=== PATIENT | female | born 2000 | race Caucasian/White ===

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

== ENCOUNTER 2023-05-16 17:38 | Emergency (ER) | payer OTHER, MEDICAID ==
[2023-05-16 17:54] VITALS: BP 136/82
[2023-05-16 18:25] LABS: BASOPHILS # (AUTO) 0.1 10^3/uL (0.0-0.1); EOSINOPHILS # (AUTO) 0.1 10^3/uL (0.0-0.7); EOSINOPHILS % (AUTO) 0.8 %; HCT - HEMATOCRIT 41.2 % (37.0-47.0); HGB - HEMOGLOBIN 13.6 g/dL (12.0-16.0); LYMPHOCYTES # (AUTO) 3.5 10^3/uL (1.5-3.5); LYMPHOCYTES % (AUTO) 38.6 %; MEAN CORPUSCULAR HEMOGLOBIN 27.8 pg (27.0-31.0); MEAN CORPUSCULAR VOLUME 84.3 fL (81.0-99.0); MEAN PLATELET VOLUME 10.8 fL (7.9-10.8); MONOCYTES # (AUTO) 0.6 10^3/uL (0.0-1.0); MONOCYTES % (AUTO) 6.1 %; NEUTROPHILS # (AUTO) 4.9 10^3/uL (1.5-6.6); NEUTROPHILS % (AUTO) 53.3 %; PLT - PLATELET COUNT 260 10^3/uL (130-450); RED BLOOD COUNT 4.89 10^6/uL (4.20-5.40); RED CELL DISTRIBUTION WIDTH 12.3 % (12.0-15.0); WHITE BLOOD COUNT 9.1 x10^3/uL (4.8-10.8)
[2023-05-16 18:34] LABS: ALBUMIN 4.6 g/dL (3.2-5.5); ALBUMIN/GLOBULIN RATIO 1.5 (1.0-2.2); BILIRUBIN,TOTAL 0.2 mg/dL (0.2-1.0); CALCIUM 9.9 mg/dL (8.5-10.3); CREATININE 0.7 mg/dL (0.6-1.3); POTASSIUM 3.6 mmol/L (3.5-4.5); TOTAL PROTEIN 7.7 g/dL (6.4-8.9)
[2023-05-16 20:25] LABS: BILIRUBIN,URINE NEGATIVE (NEGATIVE); GLUCOSE, URINE (UA) NEGATIVE (NEGATIVE); KETONES,URINE (UA) NEGATIVE (NEGATIVE); LEUKOCYTE ESTERASE, URINE NEGATIVE (NEGATIVE); NITRITE,URINE NEGATIVE (NEGATIVE); OCCULT BLOOD,URINE LARGE (NEGATIVE); PH,URINE 8.5 PH (5.0-7.5); PROTEIN,URINE TRACE mg/dL (NEGATIVE); UROBILINOGEN,URINE 0.2 (NORMAL) E.U./dL (NORMAL)
[2023-05-16 20:30] LABS: CLARITY,URINE HAZY (CLEAR)
[2023-05-16 20:40] LABS: RBC,URINE TNTC /HPF (0-5); WBC,URINE 0-3 /HPF (0-5)
[2023-05-16 20:41] LABS: BACTERIA,URINE Few /HPF (None Seen); SQUAMOUS EPITHELIAL CELL,UR FEW Squamous (<= Few)
--- NOTE | 2023-05-16 21:13 | Ultrasound Report ---
PROCEDURE: OB First Trimester w/TV INDICATIONS: 5 weeks preg, vag bleed OUTSIDE/PRIOR DATING DATA: Last menstrual period (LMP): 04/12/2023. LMP-based estimated date of delivery (CJ): 01/17/2024. First dating scan (date and location): 05/16/2023. Estimated date of delivery (CJ) from first dating scan: Not applicable. TECHNIQUE: Real-time scanning was performed of the fetus and maternal pelvic organs, with image documentation. Endovaginal scanning was also performed to better visualize the fetus and maternal ovaries. COMPARISON: None. FINDINGS: There is no visualized intrauterine or extrauterine . No gestational sac is clearly identifi ed. Right ovary is unremarkable. Left ovary is not visualized. No free fluid. IMPRESSION: No visualized intrauterine or extrauterine . Recommend correlation to beta hCG levels and sh ort interval imaging follow-up as indicated. Reviewed by: Vanessa Solis MD on 05/16/2023 9:11 PM PST Approved by: Vanessa Solis MD on 05/16/2023 9:11 PM PST Station ID: [id number]
[2023-05-16 21:23] VITALS: O2SAT 99
--- NOTE | 2023-05-16 21:52 | ED Physician Documentation ---
History of Present Illness - Stated complaint Stated Complaint: - Chief complaint Chief Complaint: Abd Pain - History obtained from History obtained from: Patient - History of Present Illness Pain level max: 0 Pain level now: 0 - Additonal information Additional information: 22-year-old female presents to the emergency department stating that she took a test last week which was positive. She started having vaginal bleeding 2 days ago. No cramping. No abdominal pain. She states she went to a OB clinic in [place] and they told her to come here for an ultrasound. Patient is not lightheaded, dizzy. No chest pain. No abdominal pain. No pelvic pain. No urinary symptoms. Has never been before. Review of Systems Constitutional: denies: Fever, Chills Respiratory: denies: Cough GI: denies: Vomiting, Diarrhea, Hematemesis : reports: Vaginal bleeding (Patient feels like she is on her normal menses). denies: Dysuria, Frequency, Hesitancy Skin: denies: Rash PD PAST MEDICAL HISTORY - Past Medical History Past Medical History: Yes Cardiovascular: None Respiratory: None Neuro: None Endocrine/Autoimmune: None GI: None SECOND MILLER: None HEENT: None Psych: Depression, Anxiety Musculoskeletal: None Derm: None - Past Surgical History Past Surgical History: Yes HEENT: Myringotomy (tubes), Tonsil/Adenoidectomy - Present Medications Home Medications: Ambulatory Orders Medication Instructions Recorded Confirmed Bcp 06/12/19 buPROPion HCL [Wellbutrin Xl] 300 mg PO DAILY 06/12/19 06/12/19 - Allergies Allergies/Adverse Reactions: Allergies Allergy/AdvReac Type Severity Reaction Status Date / Time bee sting Allergy Intermediate Unknown Uncoded 05/16/23 17:41 wart med Allergy Intermediate Rash Uncoded 05/16/23 17:41 - Social History Does the pt smoke?: No Smoking Status: Never smoker Does the pt drink ETOH?: No Does the pt have substance abuse?: No - Immunizations Immunizations are current?: Yes PD ED PE NORMAL - Vitals Vital signs reviewed: Yes - General General: Alert and oriented X 3, No acute distress - HEENT HEENT: PERRL, Moist mucous membranes - Neck Neck: Supple, no meningeal sign - Cardiac Cardiac: RRR, Strong equal pulses - Respiratory Respiratory: No respiratory distress, Clear bilaterally - Abdomen Abdomen: Soft, Non tender, Non distended - Derm Derm: Warm and dry - Neuro Neuro: Alert and oriented X 3 - Psych Psych: Normal mood, Normal affect Results - Vitals Vitals: Vital Signs - 24 hr 05/16/23 05/16/23 17:41 21:16 Temperature 36.8 C 36.7 C Heart Rate 96 100 Respiratory 16 16 Rate Blood Pressure 136/82 H 136/82 H O2 Saturation 100 99 Oxygen O2 Source Room air - Labs Labs: Laboratory Tests 05/16/23 05/16/23 05/16/23 18:17 18:17 18:45 WBC 9.1 RBC 4.89 Hgb 13.6 Hct 41.2 MCV 84.3 MCH 27.8 MCHC 33.0 RDW 12.3 Plt Count 260 MPV 10.8 Neut # (Auto) 4.9 Lymph # (Auto) 3.5 [place] # (Auto) 0.6 Eos # (Auto) 0.1 Baso # (Auto) 0.1 Absolute Nucleated RBC 0.00 Nucleated RBC % 0.0 Sodium 138 Potassium 3.6 Chloride 105 Carbon Dioxide 27 Anion Gap 6.0 BUN 12 Creatinine 0.7 Estimated GFR (MDRD) 107 Glucose 91 Calcium 9.9 Total Bilirubin 0.2 AST 13 ALT 11 Alkaline Phosphatase 74 Total Protein 7.7 Albumin 4.6 Globulin 3.1 Albumin/Globulin Ratio 1.5 Lipase 13 Beta HCG, Quant 13.1 Urine Color RED/BLOODY Urine Clarity HAZY Urine pH 8.5 H Ur Specific [place] 1.015 Urine Protein TRACE Urine Glucose (UA) NEGATIVE Urine Ketones NEGATIVE Urine Occult Blood LARGE H Urine Nitrite NEGATIVE Urine Bilirubin NEGATIVE Urine Urobilinogen 0.2 (NORMAL) Ur Leukocyte Esterase NEGATIVE Urine RBC TNTC H Urine WBC 0-3 Ur Squamous Epith Cells FEW Squamous Urine Bacteria Few Ur Microscopic Review INDICATED Urine Culture Comments NOT INDICATED - Rads (name of study) OB US Relevant Findings:: Final report received, See rad report PD Medical Decision Making - ED course Complexity details: reviewed results, re-evaluated patient, considered differential, d/w patient ED course: Patient's hCG is only 13. Her ultrasound does not show any evidence of an intrauterine or ectopic . She had a positive urine test last week. Unclear if her current symptoms are early or miscarriage, but her history would favor a miscarriage. Abdomen is soft, nontender nondistended. She will follow-up with her doctor for repeat hCG next week. Patient will return if she develops abdominal pain, lightheadedness, dizziness, worsening bleeding or any other new or worrisome symptoms. Patient counseled regarding signs and symptoms for which I believe and urgent re- evaluation would be necessary. Patient with good understanding of and agreement to plan and is comfortable going home at this time This document was made in part using voice recognition software. While efforts are made to proofread this document, sound alike and grammatical errors may occur. Departure - Departure Disposition: 01 Home, Self Care Clinical Impression: Vaginal bleeding affecting early Condition: Good Instructions: ED Miscarriage Poss Follow-Up: [facility] [Primary Care Provider] - Within 3 Days Comments: Your beta hCG today is 13. This is minimally elevated above the normal level of 5. Your ultrasound does not show any evidence of at this time. It is likely that you are undergoing a miscarriage, but to confirm you need another hCG level drawn in approximately 3 days. Please return if you develop abdominal pain, worsening bleeding or any other new or worrisome symptoms. Forms: PCP List Discharge Date/Time: 05/16/23 21:57
== END 2023-05-16 21:57 | disposition home or self-care (01) ==
LOC: ED 17:38
DX: O20.9 Hemorrhage in early pregnancy, unspecified (principal)
CPT/HCPCS: 36415; 80053; 81001; 81003; 83690; 84702; 85025; 87086; 99283; 99284

== ENCOUNTER 2023-08-02 17:46 | Outpatient (CLI) | payer OTHER, MEDICAID ==
--- NOTE | 2023-08-03 20:43 | XRAY Report ---
PROCEDURE: Shoulder 2+V RT INDICATIONS: PAIN IN RIGHT SHOULDER TECHNIQUE: 3 views of the shoulder were acquired. COMPARISON: None. FINDINGS: Bones: No fractures or dislocations. Normal glenohumeral alignment. Acromioclavicular and coracoclav icular intervals are maintained. No suspicious bony lesions. Visualized ribs appear intact. Soft tissues: No suspicious soft tissue calcifications. The visualized lungs are within normal limi ts. IMPRESSION: No acute bony abnormality. Reviewed by: Jose E Sung MD on 08/03/2023 8:42 PM PST Approved by: Jose E Sung MD on 08/03/2023 8:42 PM PST Station ID: [id number]
== END 2023-08-02 17:47 | disposition home or self-care (01) ==
LOC: DI 17:46
PROVIDERS: ATTEND Physician Assistant Medical
DX: M25.511 Pain in right shoulder (principal)

== ENCOUNTER 2023-08-15 08:00 | Outpatient (CLI) | payer OTHER, MEDICAID ==
--- NOTE | 2023-08-15 16:26 | XRAY Report ---
PROCEDURE: Shoulder 2 View RT INDICATIONS: RIGHT SHOULDER PAIN TECHNIQUE: 3 views of the shoulder were acquired. COMPARISON: Right shoulder radiographs 08/02/2023. FINDINGS: Bones: No fractures or dislocations. No suspicious bony lesions. Visualized ribs appear intact. Soft tissues: No suspicious soft tissue calcifications. The visualized lungs are within normal limi ts. IMPRESSION: No osseous abnormality. Reviewed by: Adrien Gonsalez MD on 08/15/2023 4:25 PM PDT Approved by: Adrien Gonsalez MD on 08/15/2023 4:25 PM PDT Station ID: [id number]
== END 2023-08-15 23:59 | disposition home or self-care (01) ==
LOC: DI.WOS 08:00
PROVIDERS: ATTEND Physician Assistant Surgical
DX: M25.511 Pain in right shoulder (principal)

== ENCOUNTER 2023-08-29 07:26 | Outpatient (CLI) | payer OTHER, MEDICAID ==
--- NOTE | 2023-08-29 13:23 | MRI Report ---
PROCEDURE: Shoulder RT WO INDICATIONS: R SHOULDER PAIN TECHNIQUE: Noncontrast oblique coronal T2 fast spin echo with fat saturation, oblique sagittal T1 spin echo and T2 fast spin echo with fat saturation, axial T1 spin echo and T2 fast spin echo with fat saturation t hrough the shoulder. COMPARISON: Right shoulder radiograph dated 08/15/2023 and 07/31/2023. FINDINGS: Image quality: Excellent. Rotator cuff: Low-grade articular surface partial-thickness tear involving distal supraspinatus at it s insertion on humeral head is seen. Distal infraspinatus and subscapularis tendinosis is seen. No fu ll-thickness rotator cuff tendon rupture. No rotator cuff muscle atrophy on sagittal images. Bones and bursae: No bone marrow contusions or fractures. No acromioclavicular joint degeneration. The acromion demonstrates conventional anatomy, without an os acromiale. No pathologic subacromial/ subdeltoid bursal fluid is present. Capsule and soft tissues: In the absence of intra-articular contrast, the labrum and glenohumeral li gaments appear intact. The long head of the biceps tendon demonstrates normal location and morpholog y. The rotator interval appears normal, without fibrosis. The coracohumeral ligament is normal in t hickness. IMPRESSION: 1. Low-grade articular surface partial-thickness tear involving distal supraspinatus. Distal infraspi natus and subscapularis tendinosis. No full-thickness rotator cuff tendon rupture. 2. No marrow edema. No fracture or dislocation. No significant subacromial subdeltoid bursal fluid or loose bodies. 3. No evidence of focal labral tear. Reviewed by: Johny Garner MD on 08/29/2023 1:22 PM PDT Approved by: Johny Garner MD on 08/29/2023 1:22 PM PDT Station ID: [id number]
== END 2023-08-29 07:27 | disposition home or self-care (01) ==
LOC: DI 07:26
PROVIDERS: ATTEND Physician Assistant Surgical
DX: M75.111 Incomplete rotator cuff tear or rupture of right shoulder, not specified as traumatic (principal)

== ENCOUNTER 2024-01-01 09:11 | Outpatient (CLI) | payer OTHER, MEDICAID ==
--- NOTE | 2024-01-01 09:40 | XRAY Report ---
PROCEDURE: Shoulder 2+V RT INDICATIONS: PAIN IN RIGHT SHOULDER TECHNIQUE: 3 views of the shoulder were acquired. COMPARISON: 08/29/2023 MRI FINDINGS: Bones: No acute displaced fracture or dislocation. Soft tissues: No suspicious calcifications. IMPRESSION: No acute radiographic abnormality. If there is high concern for further derangement, consider MRI krista luation. Reviewed by: Giovany Ramos MD on 01/01/2024 9:39 AM PDT Approved by: Giovany Ramos MD on 01/01/2024 9:39 AM PDT Station ID: [id number]
== END 2024-01-01 23:59 | disposition home or self-care (01) ==
LOC: DI.N 09:11
PROVIDERS: ATTEND Physician Assistant Medical
DX: M25.511 Pain in right shoulder (principal)